=== PATIENT | female | born 1955 | race American Indian/Alaskan Native ===

== ENCOUNTER 2021-06-18 10:23 | Outpatient (CLI) | payer OTHER ==
--- NOTE | 2021-06-18 19:00 | Magnetic Resonance Report ---
MRA HEAD 06/18/2021 INDICATION / CLINICAL INFORMATION: H53.123 Transient vision loss, Headaches and blurry vision. TECHNIQUE: Routine MRA of the head is performed. 3-D/MIP reformats postprocessed. COMPARISON: None available. FINDINGS: MRA HEAD: Intracranial internal carotid arteries: No significant abnormality. Anterior cerebral arteries: No significant abnormality. Middle cerebral arteries: No significant abnormality. Intracranial vertebral arteries: No significant abnormality. Basilar artery: No significant abnormality. Posterior cerebral arteries: No significant abnormality. IMPRESSION: No significant abnormality Signer Name: Pablo Cantrell MD Signed: 06/18/2021 6:55 PM Workstation Name: [id number]
--- NOTE | 2021-06-18 19:01 | Magnetic Resonance Report ---
MRA NECK 06/18/2021 INDICATION / CLINICAL INFORMATION: H53.123 TRANSIENT VISION LOSS. 18ML CLARISCAN TECHNIQUE: Routine MRA of the neck are performed. 3-D/MIP reformats postprocessed. Percentage stenosis is deter mined by direct quantitative measurements of distal internal carotid artery diameter compared with no rmal reference segments or by criteria similar to NASCET where applicable. COMPARISON: None available. FINDINGS: Unenhanced and enhanced MR angiographic images of the neck were obtained. 3D/MIP reformats were post- processed. Carotid bifurcations: No evidence of carotid bifurcation stenosis. Common carotid arteries: No significant abnormality. Cervical internal carotid arteries: No significant abnormality. Cervical vertebral arteries: No significant abnormality. Visible aortic arch: Not well seen on this exam. IMPRESSION: No significant abnormality Signer Name: Pablo Cantrell MD Signed: 06/18/2021 6:57 PM Workstation Name: [id number]
--- NOTE | 2021-06-18 19:05 | Magnetic Resonance Report ---
MRI BRAIN 06/18/2021 INDICATION / CLINICAL INFORMATION: TRANSIENT VISUAL FIELD LOSS. TECHNIQUE: Multiplanar, multisequence MR images of the brain were obtained. COMPARISON: None available. FINDINGS: BRAIN / INTRACRANIAL CONTENTS: Unenhanced and enhanced MR images of the brain were obtained. There is no evidence of acute abnormality. Ventricles and sulci are normal in size and shape for a patient of this age. Incidental note is made of a cavum septum lucidum, a normal variant. Focal cortical encephalomalacia in the right frontal lobe is present, which may be due to prior ische otis injury or surgery. Additional focal areas of encephalomalacia are present in the left parietal lo be and right medial posterior cerebellum.. There is no evidence of acute ischemic injury, hemorrhage, or mass. There are no abnormal extra-axial fluid collections. Postcontrast images demonstrate no abnormal contrast enhancement. EXTRACRANIAL: Unremarkable CRANIOCERVICAL JUNCTION: No significant abnormality. VASCULAR FLOW-VOIDS: No significant abnormality. IMPRESSION: No evidence of acute abnormality. 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 Signer Name: Pablo Cantrell MD Signed: 06/18/2021 7:01 PM Workstation Name: [id number]
== END 2021-06-18 10:24 | disposition home or self-care (01) ==
LOC: MRI 10:23
DX: H53.123 Transient visual loss, bilateral (principal)
CPT/HCPCS: 70546; 70549; 70553; A9575